=== PATIENT | male | born 1965 | race Caucasian/White ===

== ENCOUNTER 2019-07-06 19:53 | Emergency (ER) | payer OTHER ==
[2019-07-06 20:59] LABS: ABSOLUTE LYMPHOCYTES (AUTO) 1.3 10^3/uL (0.5-4.7); ABSOLUTE MONOCYTES (AUTO) 0.6 10^3/uL (0.1-1.4); ABSOLUTE NEUT (AUTO) 8.1 10^3/uL (1.7-8.2); BASOPHILS % (AUTO) 0.5 % (0-2); EOSINOPHILS % (AUTO) 0.3 % (0-6); HEMOGLOBIN 15.6 g/dL (13.5-17.0); LYMPHOCYTES % (AUTO) 12.8 % (13-45); MEAN CORPUSCULAR HEMOGLOBIN 29.7 pg (27.0-33.4); MEAN CORPUSCULAR HGB CONC 35.5 g/dL (32.0-36.0); MEAN CORPUSCULAR VOLUME 84 fl (80-97); MONOCYTES % (AUTO) 5.7 % (3-13); PLATELET COUNT 248 10^3/uL (150-450); RED BLOOD COUNT 5.25 10^6/uL (4.35-5.55); RED CELL DISTRIBUTION WIDTH 13.5 % (11.5-14.0); SEGMENTED NEUTROPHILS % (AUTO) 80.7 % (42-78); TOTAL CELLS COUNTED % (AUTO) 100 %
[2019-07-06 21:09] LABS: APPEARANCE,URINE SLIGHTLY-CLOUDY; BILIRUBIN,URINE NEGATIVE (NEGATIVE); COLOR,URINE YELLOW; GLUCOSE, URINE NEGATIVE (NEGATIVE); KETONES,URINE 20 mg/dL (NEGATIVE); LEUKOCYTE ESTERASE,URINE SMALL (NEGATIVE); NITRITE,URINE NEGATIVE (NEGATIVE); PROTEIN,URINE NEGATIVE (NEGATIVE); URINE SPECIFIC GRAVITY 1.019; UROBILINOGEN,URINE NEGATIVE mg/dL (<2.0)
[2019-07-06 21:17] LABS: ALKALINE PHOSPHATASE 86 U/L (38-126); ANION GAP 10 (5-19); ASPARTATE AMINO TRANSFERASE 32 U/L (17-59); BILIRUBIN,DIRECT 0.1 mg/dL (0.0-0.4); BILIRUBIN,TOTAL 0.6 mg/dL (0.2-1.3); BLOOD UREA NITROGEN 25 mg/dL (7-20); CALCIUM 9.8 mg/dL (8.4-10.2); CARBON DIOXIDE 30 mmol/L (22-30); CHLORIDE 96 mmol/L (98-107); CREATINE KINASE 228 U/L (55-170); GLUCOSE 184 mg/dL (75-110); POTASSIUM 3.6 mmol/L (3.6-5.0); TOTAL PROTEIN 8.3 g/dL (6.3-8.2)
--- NOTE | 2019-07-06 21:25 | EKG REPORT ---
SEVERITY:- NORMAL ECG - SINUS RHYTHM : Confirmed by: German Granda MD 06-Jul-2019 21:24:57
[2019-07-06 21:29] LABS: CREATINE KINASE MB 1.37 ng/mL (<4.55); TROPONIN I < 0.012 ng/mL
--- NOTE | 2019-07-06 21:39 | ER Document Report ---
ED Dizziness/Weakness - General Chief Complaint: Dizziness Stated Complaint: LIGHT HEADEDNESS Time Seen by Provider: 07/06/19 21:38 Primary Care Provider: ANDREW MCGRAW DO [Primary Care Provider] - Follow up as needed Mode of Arrival: Stretcher Information source: Patient Notes: 53-year-old male past medical history significant for hypertension presents to the emergency room complaining of dizziness that has been intermittent since yesterday got worse this afternoon. States that he feels the room is spinning. Worse when going from a lying to a sitting position. No head trauma or head injury. No history of vertigo. No medications for symptoms. States he recently started on phentermine for weight control. Started it on Tuesday. Also complains of a dull generalized headache. Denies worst headache of his life. No history of migraines, no sudden thunderclap. TRAVEL OUTSIDE OF THE [place] IN LAST 30 DAYS: No - Related Data Allergies/Adverse Reactions: No Known Allergies Allergy (Unverified 07/06/19 20:08) Past Medical History - General Information source: Patient - Social History Smoking Status: Never Smoker Frequency of alcohol use: None Drug Abuse: None Lives with: Parents Family History: Reviewed & Not Pertinent Patient has homicidal ideation: No - Past Medical History Cardiac Medical History: Reports: Hx Hypertension GI Medical History: Reports: Hx Gastroesophageal Reflux Disease Review of Systems - Review of Systems Constitutional: No symptoms reported EENT: No symptoms reported Cardiovascular: No symptoms reported Respiratory: No symptoms reported Gastrointestinal: No symptoms reported Musculoskeletal: No symptoms reported Skin: No symptoms reported Neurological/Psychological: Headaches, Other - Dizziness Physical Exam - Vital signs Vitals: Temp Pulse Resp BP Pulse Ox 97.8 F 87 16 140/72 H 100 07/06/19 19:58 07/06/19 19:58 07/06/19 19:58 07/06/19 19:58 07/06/19 19:58 - General General appearance: Appears well, Alert In distress: Mild - HEENT Head: Normocephalic, Atraumatic Eyes: Normal Conjunctiva: Normal Cornea: Normal Extraocular movements intact: Yes - Nystagmus to the right Pupils: PERRL Fundascopic: Normal External canal: Normal Tympanic membrane: Normal Sinus: Normal Nasal: Normal Pharynx: Normal Neck: Normal. No: Lymphadenopathy - Respiratory Respiratory status: No respiratory distress Chest status: Nontender Breath sounds: Normal Chest palpation: Normal - Back Back: Normal, Nontender - Neurological Neuro grossly intact: Yes Cognition: Normal Orientation: AAOx4 [place] Coma Scale Eye Opening: Spontaneous [place] Coma Scale Verbal: Oriented [place] Coma Scale Motor: Obeys Commands [place] Coma Scale Total: 15 Speech: Normal Motor strength normal: LUE, RUE, LLE, RLE Sensory: Normal - Skin Skin Temperature: Warm Skin Moisture: Dry Skin Color: Normal Course - Re-evaluation Re-evalutation: 07/07/19 00:14 Patient is resting comfortably symptoms have resolved. Neurologically and neurovascularly intact. Reviewed all lab results with patient. Patient was counseled to stop the phentermine until he can follow-up with his primary care physician. Will be discharged home on meclizine. He was given strict return to the emergency room guidelines. Return for any new or worsening symptoms. All questions were answered. Patient verbalized understanding and agrees with plan of care. - Vital Signs Vital signs: Temp Pulse Resp BP Pulse Ox 97.8 F 81 14 132/81 H 96 07/06/19 20:08 07/06/19 23:38 07/06/19 23:38 07/06/19 23:38 07/06/19 23:38 - Laboratory Result Diagrams: 07/06/19 20:47 07/06/19 20:47 Laboratory results interpreted by me: 07/06/19 07/06/19 07/06/19 20:47 20:47 20:52 Lymph % (Auto) 12.8 L Seg Neutrophils % 80.7 H Sodium 135.8 L Chloride 96 L BUN 25 H Creatinine 1.31 H Est GFR (MDRD) Non-Af 57 L Glucose 184 H Creatine Kinase 228 H Total Protein 8.3 H Urine Ketones 20 H Ur Leukocyte Esterase SMALL H Urine Ascorbic Acid 20 H - EKG Interpretation by Or EKG shows normal: Sinus rhythm Rate: Normal Additional EKG results interpreted by me: 07/06/19 21:47 EKG interpreted by ED physician Dr. Connolly 07/06/19 22:04 Discharge - Discharge Clinical Impression: Dizziness, Vertigo, Medication side effect Condition: Stable Disposition: HOME, SELF-CARE Instructions: Dizziness ([facility]), Meclizine ([facility]), Medication Side Effects ([facility]), Vertigo ([facility]) Additional Instructions: Rest, increase fluids, take medications as prescribed. Stop phentermine until you can follow-up with the primary care physician. Return for any new or worsening symptoms. Prescriptions: Meclizine HCl [Antivert 25 mg Tablet] 25 mg PO TID PRN #21 tablet PRN Reason: Referrals: ANDREW MCGRAW DO [Primary Care Provider] - Follow up as needed
[2019-07-06] MEDS ORDERED: MECLIZINE HCL 25 MG TABLET PO ONE (22:04)
[2019-07-06] MEDS ORDERED: ACETAMINOPHEN 325 MG TABLET PO ONE (22:06)
[2019-07-06] MEDS ORDERED: RINGERS SOLUTION,LACTATED 1,000 ML IV ONE (22:07)
[2019-07-07 01:21] VITALS: BP 143/90
== END 2019-07-07 01:21 | disposition home or self-care (01) ==
LOC: ER 19:53
DX: R42 Dizziness and giddiness (principal); R51 Headache; T50.5X5A Adverse effect of appetite depressants, initial encounter; X58.XXXA Exposure to other specified factors, initial encounter; I10 Essential (primary) hypertension
CPT/HCPCS: 93005; 99284; 96360; 36415; 82553; 82550; 85025; 80053; 81001; 84484; 93010; J7120